=== PATIENT | female | born 1960 | race Asian ===

== ENCOUNTER → 2024-03-10 | Outpatient (CLI) | LOC: M SOG 10:24 | PROVIDERS: ATTEND Physician Assistant | DX: M79.645 Pain in left finger(s) (principal); S62.637A Displaced fracture of distal phalanx of left little finger, initial encounter for closed fracture; S62.627A Displaced fracture of middle phalanx of left little finger, initial encounter for closed fracture; X58.XXXA Exposure to other specified factors, initial encounter; Y92.9 Unspecified place or not applicable; Y93.9 Activity, unspecified; Y99.9 Unspecified external cause status ==

== ENCOUNTER 2024-03-16 08:32 | Day surgery (SDC) | payer BC ==
[~2024-03-16] VITALS: Ht 154.9 cm; Wt 70.8 kg
[~2024-03-16 08:32] MED LIST: CEPH500C PO; HYDR-4571; LOSA50TA28 PO; PANT40TA29 PO
[2024-03-16] MEDS ORDERED: LR 1,000 ML IV SCH ×2 (08:40→13:05)
[2024-03-16] MEDS ORDERED: fentaNYL 100 MCG/2 ML INJECTION As Ordered ONE (12:12)
[2024-03-16] MEDS ORDERED: LIDOCAINE 2% 100MG/5ML SDV (FOR ANES.) As Ordered ONE (12:13)
[2024-03-16] MEDS ORDERED: ONDANSETRON 4MG 2ML VIAL As Ordered ONE (12:13)
[2024-03-16] MEDS ORDERED: METOCLOPRAMIDE INJ 10MG/2ML VIAL As Ordered ONE (12:13)
[2024-03-16] MEDS ORDERED: propofoL 200 MG/20 ML VIAL As Ordered ONE (12:13)
[2024-03-16] MEDS ORDERED: MIDAZOLAM INJ 2MG/2ML VIAL As Ordered ONE (12:13)
[2024-03-16] MEDS ORDERED: KETOROLAC 60MG 2ML VIAL As Ordered ONE (12:13)
[2024-03-16] MEDS: ceFAZolin 2 GM/D5W 50 ML IV BAG As Ordered ONE (12:15)
[2024-03-16] MEDS: ceFAZolin SOD 2 GM in IV 1 EA IV ONE (12:15)
[2024-03-16] MEDS ORDERED: ACETAMINOPHEN 1000MG 100ML IV BAG As Ordered ONE (12:16)
[2024-03-16] MEDS ORDERED: dexmedeTOMIDine (4MCG/ML)200MCG/50ML BTL (PRECEDEX) As Ordered ONE (12:24)
[2024-03-16] MEDS: LIDOCAINE 1% MDV 20ML VIAL As Ordered ONE (12:52)
[2024-03-16] MEDS ORDERED: fentaNYL 100 MCG/2 ML INJECTION IV PRN (13:05)
[2024-03-16] MEDS ORDERED: HYDROMORPHONE HCL 0.5 MG/ 0.5 ML SYRINGE IV PRN (13:05)
[2024-03-16] MEDS ORDERED: ONDANSETRON 4MG 2ML VIAL IV PRN (13:05)
[2024-03-16] MEDS ORDERED: PERC5TAB12 PO ×2 (13:23→13:32)
[2024-03-16] MEDS: oxyCODONE 5MG TAB PO PRN (14:39)
[2024-03-16 14:44] VITALS: BP 170/88; TEMP 98; O2SAT 98
== END 2024-03-16 14:50 | disposition home or self-care (01) ==
LOC: M SDC 08:32
PROVIDERS: ATTEND Orthopaedic Surgery Hand Surgery
DX: S62.627A Displaced fracture of middle phalanx of left little finger, initial encounter for closed fracture (principal); W23.2XXA Caught, crushed, jammed or pinched between a moving and stationary object, initial encounter; Y93.H3 Activity, building and construction; Y92.89 Other specified places as the place of occurrence of the external cause; Y99.9 Unspecified external cause status; I10 Essential (primary) hypertension; Z79.899 Other long term (current) drug therapy; Z88.0 Allergy status to penicillin
CPT/HCPCS: 26765; 76000; C1713; J0131; J0690; J1100; J1885; J2250; J2405; J2765; J3010

== ENCOUNTER → 2024-03-27 | Outpatient (CLI) | payer BC ==
[~2024-03-27] MED LIST changes: +PERC5TAB12 PO
== END ==
LOC: M SOG 07:52
PROVIDERS: ATTEND Physician Assistant
DX: M79.645 Pain in left finger(s) (principal); S62.627D Displaced fracture of middle phalanx of left little finger, subsequent encounter for fracture with routine healing

== ENCOUNTER → 2024-04-17 | Outpatient (CLI) | payer BC | LOC: M SOG 08:20 | PROVIDERS: ATTEND Physician Assistant | DX: M79.645 Pain in left finger(s) (principal); S62.637D Displaced fracture of distal phalanx of left little finger, subsequent encounter for fracture with routine healing; S62.627D Displaced fracture of middle phalanx of left little finger, subsequent encounter for fracture with routine healing ==

== ENCOUNTER → 2024-04-24 | Outpatient (CLI) | payer BC | LOC: M SOG 08:11 | PROVIDERS: ATTEND Physician Assistant | DX: M79.645 Pain in left finger(s) (principal); S62.627D Displaced fracture of middle phalanx of left little finger, subsequent encounter for fracture with routine healing ==

== ENCOUNTER → 2024-05-27 | Outpatient (CLI) | payer BC | LOC: M SOG 07:50 | PROVIDERS: ATTEND Physician Assistant | DX: Z53.9 Procedure and treatment not carried out, unspecified reason (principal) ==

== ENCOUNTER → 2024-05-27 | Outpatient (CLI) | payer BC | LOC: M SOG 07:51 | PROVIDERS: ATTEND Physician Assistant | DX: S62.307A Unspecified fracture of fifth metacarpal bone, left hand, initial encounter for closed fracture (principal); M79.645 Pain in left finger(s); Y93.9 Activity, unspecified; Y92.9 Unspecified place or not applicable ==

== ENCOUNTER → 2024-06-30 | Outpatient (CLI) | payer BC | LOC: M SOG 07:56 | PROVIDERS: ATTEND Physician Assistant | DX: M79.645 Pain in left finger(s) (principal); S62.623D Displaced fracture of middle phalanx of left middle finger, subsequent encounter for fracture with routine healing ==